=== PATIENT | female | born 1980 | race Asian ===

== ENCOUNTER 2018-01-06 09:48 | Day surgery (SDC) | payer OTHER ==
[2018-01-02 14:15] LABS: Absolute Lymphocytes (CBC) 1.6 K/uL (0.7-4.9); Absolute Monocytes 0.7 K/uL (0.1-1.3); Absolute Neutrophil 5.4 K/uL (1.8-8.0); Basophils % 0.4 % (0-1.3); Eosinophils % 0.3 % (0-4.4); Hematocrit 37.1 % (36.0-45.0); Lymphocytes % 20.3 % (15.3-44.8); MCH 28.8 pg (27.0-35.0); MCV 88.5 fL (80-100); MPV 8.7 fL (7.6-11.3); RBC Red Blood Cell Count 4.19 M/uL (3.86-4.86)
[2018-01-02 14:33] LABS: BUN Blood Urea Nitrogen 13 mg/dL (7-18); Bicarbonate 28 mmol/L (21-32); Glucose Level 98 mg/dL (74-106); Potassium 3.8 mmol/L (3.5-5.1); Sodium Level 140 mmol/L (136-145)
[2018-01-06] MEDS ORDERED: Ringers Lactate 1,000 ML IV ONE (10:01)
[2018-01-06] MEDS ORDERED: CEFAZOLIN/SWI 1gm 1 GM/10 ML SYR ONE (10:02)
[2018-01-06] MEDS ORDERED: PROPOFOL 200 MG/20 ML VIAL IV ONE (10:20)
[2018-01-06] MEDS ORDERED: FENTANYL CITR 100 MCG/2 ML ONE ×2 (10:21→14:21)
[2018-01-06] MEDS ORDERED: LIDOCAINE 2% MPF 5 ML VIAL ONE (10:22)
[2018-01-06] MEDS ORDERED: ONDANSETRON HCL 40 MG/20 ML VIAL ONE (10:22)
[2018-01-06] MEDS ORDERED: MIDAZOLAM HCL 2 MG/2 ML INJ ONE (10:47)
[2018-01-06] MEDS ORDERED: MEPERIDINE HCL 25 MG/0.5 ML ONE (12:34)
--- NOTE | 2018-01-06 13:27 | P.BOP ---
Preoperative diagnosis: left bimalleolar ankle fracture Postoperative diagnosis: same Primary procedure: left medial and lateral ORIF malleolus Estimated blood loss: 10 ccs Anesthesia: General Complications: None Transferred to: Recovery Room Condition: Good
[2018-01-06] MEDS ORDERED: ONDANSETRON 4 MG/2 ML VIAL IV ONE (13:44)
[2018-01-06] MEDS ORDERED: MEPERIDINE HCL 50 MG/ML AMP IV ONE ×3 (13:45→14:10)
[2018-01-06] MEDS ORDERED: KETOROLAC 30 MG/ML INJ IV ONE (13:50)
[2018-01-06] MEDS ORDERED: ONDANSETRON 4 MG/2 ML VIAL ONE (13:51)
[2018-01-06] MEDS ORDERED: MEPERIDINE HCL 50 MG/ML AMP ONE ×2 (13:51→14:09)
--- NOTE | 2018-01-06 13:55 | RAD REPORT ---
EXAM DESCRIPTION: RAD - Ankle Left 2 View - 01/06/2018 1:19 pm CLINICAL HISTORY: Left ankle fracture repair COMPARISON: None. FINDINGS: Multiple portable C-arm views were obtained (34 views submitted) during a fluoroscopic ass isted fracture repair. Fluoro time was 1.0 minutes. Cumulative dose was 2.32 mGy. Images show no suspicious or unexpected finding. IMPRESSION: Fluoroscopic assisted fracture repair as detailed.
[2018-01-06] MEDS ORDERED: KETOROLAC 30 MG/ML INJ ONE (13:59)
[2018-01-06] MEDS ORDERED: FENTANYL CITR 100 MCG/2 ML IV ONE ×2 (14:18→14:45)
[2018-01-06] MEDS ORDERED: HYDROCODONE/APAP 10/325 TAB ONE (14:44)
[2018-01-06] MEDS ORDERED: IBUPROFEN 400 MG TAB ONE (15:26)
--- NOTE | 2018-01-06 15:49 | OP ---
Date of Procedure: 01/06/2018 Surgeon: Cleveland Miguel MD Preoperative Diagnosis: Left ankle bimalleolar ankle fracture dislocation with displacement of both medial and lateral malleoli. Postoperative Diagnosis: Left ankle bimalleolar ankle fracture dislocation with displacement of both medial and lateral malleoli. Procedures: Left ankle open reduction and internal fixation of medial and lateral malleoli. Estimated Blood Loss: 10 cc. Complications: There are no complications. Specimens: No pathology specimens sent. Indication For Operation: Ms. Felton is a 37-year-old patient who unfortunately injured her left lo wer extremity. She was seen and examined in the Emergency Department where she was diagnosed with a fracture dislocation of the ankle. This was reduced. She arrived to see me in my office, and x-rays demonstrated a bimalleolar ankle fracture. All risks, benefits, and alternatives to open reduction and internal fixation of the ankle as well as possible placement of syndesmosis screw were discussed with the patient. She states she understands things presented. The syndesmosis screw was not placed as it was not needed. Procedure In Detail: The patient was taken to the operative room and placed in supine position. Gen eral anesthesia was obtained by staff. Following this, well-padded tourniquet placed on superior lef t thigh. Left lower extremity was then prepped and draped in the usual fashion for the procedure. F ollowing this, the medial malleolus was addressed first and a standard medial incision was taken down carefully through skin and soft tissues. Meticulous hemostasis being maintained using Bovie electro cautery. She did have surprisingly thick periosteum, which was somewhat unusual, and there was a lar ge periosteal flap, which was within the fracture site itself. This was cleared. The fracture itsel f was cleared. The medial malleolus was fractured in a slightly unusual way, this being an oblique f racture, being more proximal anterior, and more distal posterior. Therefore, the 4-0 cannulated scre w set was placed in a more of an oblique fashion and parallel to the fracture line. It should also b e noted that there was also a crack of the medial malleolus more or less in its midsubstance. Howshaheede r, it was not complete, and we were able to place two 4-0 cannulated screws in standard fashion, appe ared to have good reduction and good compression. The wound was gently irrigated and the skin was cl osed using interrupted Vicryl sutures, followed by mary alice. Attention was then turned to the lateral side as a bump was placed under her left hip. This allowed us good visualization of the lateral jay e. A standard lateral incision was then taken down carefully through skin and soft tissues. Meticul ous hemostasis being maintained using Bovie electrocautery. The fracture site is seen and again the periosteum is very thick. It also is somewhat shredded with a significant amount of stringy perioste um in the region of the fracture site. This was all cleared for visualization of the fracture. The fracture itself was quite shortened and quite a bit more displaced than originally anticipated. Lyon maxine, the fracture site was cleaned in total. A reduction clamp was then used to bring it back out th e length with an anatomic reduction. It was more horizontal and decision was made not to try to plac e a lag screw as it is also very distal and the lag screw may have interfered with the placement of 2 distal screws. Therefore, decision was made to maintain the reduction with a clamp and a 6 hole 1/3 tubular plate is then placed in standard fashion with the inferior screws having a very good purchas e in this non-osteopenic bone. Following this, the wound was irrigated and the skin was closed using interrupted 2-0 Vicryl sutures, followed by mary alice. The patient was then placed in a well-padded s terile dressing as well as a posterior splint and a U. She was then awakened and taken to recovery r oom in good condition. There were no complications. /EVELYN Voice ID: [id number] Report ID: [id number]
== END 2018-01-06 16:15 | disposition home or self-care (01) ==
LOC: OR 09:48
PROVIDERS: ATTEND Orthopaedic Surgery
PROC: 0QSK04Z Reposition Left Fibula with Internal Fixation Device, Open Approach (ICD-10-PCS; 2018-01-06)
PROC: 0QSH04Z Reposition Left Tibia with Internal Fixation Device, Open Approach (ICD-10-PCS; principal; 2018-01-06 11:00)
DX: S82.842A Displaced bimalleolar fracture of left lower leg, initial encounter for closed fracture (principal); Z88.3 Allergy status to other anti-infective agents; Z88.6 Allergy status to analgesic agent
CPT/HCPCS: 36415; 80048; 81025; 85025; J0690; J2175; J2250; J2405; J3010